=== PATIENT | male | born 1990 | race Caucasian/White ===

== ENCOUNTER 2016-06-25 18:20 | Emergency (ER) | payer SELFPAY ==
[2016-06-25] MEDS ORDERED: Sodium Chloride 0.9% 1,000 ML IV ONE (19:35)
--- NOTE | 2016-06-25 19:38 | ED Physician Chart ---
Chief Complaint/HPI - Patient Information Date Seen:: 06/25/16 Time Seen:: 19:36 Chief Complaint:: etoh intox History of Present Illness:: pt admits to drinking today. wont say how much but he says this was a unusual episode. he used to drink lots every day but doesnt do this anymore. he denies any injury or acute pain or illness no yarely pmh. Allergies:: Allergies Allergy/AdvReac Type Severity Reaction Status Date / Time No Known Allergies Allergy Verified 06/25/16 18:30 Vitals:: Vital Signs - 8 hr 06/25/16 18:20 Temp 97.0 F HR 100 RR 16 BP 126/85 O2 Sat % 97 Historian:: Patient Review of Systems - Review of Systems General/Constitutional: No fever, No chills, No weight loss, No weakness, No diaphoresis, No edema, No loss of appetite Skin: No skin lesions, No rash, No bruising Head: No headache, No light-headedness Eyes: No loss of vision, No pain, No diplopia ENT: No earache, No nasal drainage, No sore throat, No tinnitus Neck: No neck pain, No swelling, No thyromegaly, No stiffness, No mass noted Cardio Vascular: No chest pain, No palpitations, No PND, No orthopnea, No edema Pulmonary: No SOB, No cough, No sputum, No wheezing GI: No nausea, No vomiting, No diarrhea, No pain, No melena, No hematochezia, No constipation, No hematemesis G/U: No dysuria, No frequency, No hematuria Musculoskeletal: No bone or joint pain, No back pain, No muscle pain Endocrine: No polyuria, No polydipsia Psychiatric: No prior psych history, No depression, No anxiety, No suicidal ideation Hematopoietic: No bruising, No lymphadenopathy Allergic/Immuno: No urticaria, No angioedema Neurological: No syncope, No focal symptoms, No weakness, No paresthesia, No headache, No seizure, No dizziness, No confusion, No vertigo Past Medical History - Past Medical History Past Medical History: No significant medical hx Social History: Alcohol Medication: Reviewed Family Medical History - Family Member Mother History Unknown: Yes Physical Exam - Physical Examination General/Constitutional: Awake, Well-developed, well-nourished, Alert, No distress, GCS 15, Non-toxic appearing, Ambulatory Other Gen/Cons comments:: pt is awake and talkative...makes sense..mildly uninhibited c/w etoh. no sign of trauma. wn/wh. he walks w steady gate and is capable of rational and coercive thinking/action Head: Atraumatic Eyes: Lids, conjuctiva normal, PERRL, EOMI Skin: Nl inspection, No rash, No skin lesions, No ecchymosis, Well hydrated, No lymphadenopathy ENMT: External ears, nose nl, Nasal exam nl, Lips, teeth, gums nl Neck: Nontender, Full ROM w/o pain, No JVD, No nuchal rigidity, No bruit, No mass, No stridor Respiratory: Nl effort/Exclusion, Clear to Auscultation, No Wheeze/Rhonchi/Rales Cardio Vascular: RRR, No murmur, gallop, rubs, NL S1 S2 GI: No tenderness/rebounding/guarding, No organomegaly, No hernia, Normal BS's, Nondistended, No mass/bruits, No McBurney tenderness : No CVA tenderness Extremities: No tenderness or effusion, Full ROM, normal strength in all extremities, No edema, Normal digits & nails Neuro/Psych: Alert/oriented, DTR's symmetric, Normal sensory exam, Normal motor strength, Judgement/insight normal, Mood normal, Normal gait, No focal deficits Misc: normal gait, Normal back, No paraspinal tenderness ED Septic Shock - . Is Septic Shock (SBP<90, OR Lactate>4 mmol\L) present?: No - <6hrs of presentation: Vital Signs: Vital Signs - 8 hr 06/25/16 18:20 Temp 97.0 F HR 100 RR 16 BP 126/85 O2 Sat % 97 Reassessment (Disposition) - Reassessment Reassessment Condition:: Unchanged - Diagnosis Diagnosis:: 1 etoh intoxication 2 pt eloped from ed - Patient Disposition Discharge/Transfer:: Elope/AWOL Condition at Disposition:: Unchanged
[2016-06-25 19:51] LABS: % BASOPHILS 0.6 % (0.0-2.0); % LYMPHOCYTES 43.4 % (20.0-50.0); % MONOCYTES 3.9 % (2.0-10.0); % NEUTROPHILS 51.1 % (40.0-80.0); HEMATOCRIT 47.6 % (39.0-49.0); HEMOGLOBIN 16.1 gm/dL (13.2-17.3); MEAN CELL VOLUME 88.2 fl (80-99); MEAN CORPUSCULAR HEMOGLOBIN 29.9 pg (26.0-30.0); MEAN CORPUSCULAR HGB CONC 33.9 pg (28.0-36.0); MEAN PLATELET VOLUME 7.9 fl; NEUTROPHILE ABSOLUTE 3.7 Th/cmm (1.8-8.0); PLATELET COUNT 303 Th/cmm (150-400); WHITE BLOOD COUNT 7.3 Th/cmm (4.8-10.8)
[2016-06-25 20:04] LABS: ALB/GLOB RATIO 1.8 (1.0-1.8); ALKALINE PHOSPHATASE 57 U/L (34-104); ANION GAP 13.9 (7.0-16.0); BILIRUBIN,TOTAL 0.5 mg/dL (0.3-1.0); BUN - UREA NITROGEN 6 mg/dL (7-25); BUN/CREATININE RATIO 6.7; CALCIUM SERUM 9.5 mg/dL (8.6-10.3); CHLORIDE 107 mEq/L (98-107); CREATININE - SERUM 0.9 mg/dL (0.7-1.3); GLUCOSE 104 mg/dL (70-105); POTASSIUM SERUM 3.9 mEq/L (3.5-5.1); SGOT 29 U/L (13-39); SGPT/ALT 38 U/L (7-52); SODIUM SERUM 142 mEq/L (136-145)
[2016-06-25 20:07] LABS: AMPHETAMINE URINE NEGATIVE (NEGATIVE); BARBITURATES URINE NEGATIVE (NEGATIVE); METHADONE URINE NEGATIVE (NEGATIVE)
== END 2016-06-25 19:46 | disposition left against medical advice (07) ==
LOC: ER 18:20
DX: F10.129 Alcohol abuse with intoxication, unspecified (principal)
CPT/HCPCS: 36415-UA; 80053-TC; 80320-TC; 85025-TC; Z7502